=== PATIENT | female | born 2000 | race Caucasian/White ===

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

== ENCOUNTER 2018-02-08 12:41 | Emergency (ER) | payer OTHER ==
[2018-02-08] MEDS ORDERED: ONDANSETRON 4 MG/2 ML VIAL IVP STA (13:41)
[2018-02-08] MEDS ORDERED: FAMOTIDINE 20 MG/2 ML VIAL IV STA (13:42)
--- NOTE | 2018-02-08 13:45 | ED ---
General Adult HPI - General Chief complaint: Nausea/Vomiting/Diarrhea Stated complaint: Vomiting Time Seen by Provider: 02/08/18 13:32 Source: patient, RN notes reviewed Mode of arrival: ambulatory Limitations: no limitations - History of Present Illness Initial comments: Patient is a pleasant 17-year-old female presenting to the emergency Department with vomiting. Symptoms have been occurring for a couple of days. Patient was seen at a different facility and had blood work and computed tomography scan done and was told everything was fine. Patient believes she may have passed a kidney stone at one point. Patient did have some left posterior flank discomfort that has improved. Patient states this morning she had swelling and discomfort of her throat and lymph nodes in her neck. Patient also feels that her private have been swollen. No dysuria. Patient believes she is been having fevers. Patient states she is having intermittent episodes of vomiting. - Related Data Home Medications Medication Instructions Recorded Confirmed Fluticasone Nasal [place] [Flonase 1 spr EA NOSTRIL DAILY PRN 02/08/18 02/08/18 Nasal [place]] Previous Rx's Medication Instructions Recorded Ondansetron Odt [Zofran Odt] 4 mg PO Q8HR PRN #10 tab 02/08/18 Allergies Allergy/AdvReac Type Severity Reaction Status Date / Time latex Allergy Rash/Hives Verified 02/08/18 13:28 Review of Systems ROS Statement: Those systems with pertinent positive or pertinent negative responses have been documented in the HPI. ROS Other: All systems not noted in ROS Statement are negative. Constitutional: Reports: fever, chills Eyes: Denies: eye pain ENT: Reports: throat pain Respiratory: Denies: cough Cardiovascular: Denies: chest pain Endocrine: Reports: fatigue Gastrointestinal: Reports: abdominal pain, nausea, vomiting Genitourinary: Denies: dysuria Musculoskeletal: Reports: as per HPI, back pain Skin: Denies: rash Neurological: Denies: weakness Past Medical History Past Medical History: GERD/Reflux Additional Past Medical History / Comment(s): PID History of Any Multi-Drug Resistant Organisms: None Reported Past Surgical History: No Surgical Hx Reported Past Psychological History: Anxiety, Depression Smoking Status: Current every day smoker Past Alcohol Use History: None Reported Past Drug Use History: None Reported General Exam Limitations: no limitations General appearance: alert, in no apparent distress Head exam: Present: atraumatic, normocephalic Eye exam: Present: normal appearance, PERRL ENT exam: Present: other (Mild pharyngeal erythema) Neck exam: Present: lymphadenopathy (Mildly tender anterior cervical lymphadenopathy). Absent: meningismus Respiratory exam: Present: normal lung sounds bilaterally Cardiovascular Exam: Present: regular rate, normal rhythm Expanded Peripheral pulses: 2+: Dorsalis Pedis (R), Dorsalis Pedis (L) GI/Abdominal exam: Present: soft, tenderness (Mild tenderness lower abdomen), normal bowel sounds. Absent: distended, guarding, rebound, rigid, pulsatile mass External exam: Present: normal external exam (JACI Em is present during exam) Speculum exam: Present: normal speculum exam By manual exam: Present: normal by manual exam. Absent: cervical motion tenderness, adnexal tenderness, adnexal mass Extremities exam: Present: normal inspection Back exam: Present: CVA tenderness (L) (Mild tenderness left CVA region) Neurological exam: Present: alert Psychiatric exam: Present: normal affect, normal mood Skin exam: Present: normal color Course Vital Signs 02/08/18 02/08/18 02/08/18 12:56 14:55 15:30 Temperature 98.2 F 98.7 F Pulse Rate 91 55 L Respiratory 18 16 18 Rate Blood Pressure 120/81 112/63 126/73 O2 Sat by Pulse 98 94 L Oximetry Medical Decision Making - Medical Decision Making Patient reevaluated and resting comfortably in bed. Patient updated on results. - Lab Data Result diagrams: 02/08/18 14:06 02/08/18 14:06 Lab Results 02/08/18 02/08/18 02/08/18 Range/Units 14:00 14:00 14:06 WBC (4.0-11.0) k/uL RBC (3.80-5.40) m/uL Hgb (11.4-16.0) gm/dL Hct (34.0-46.0) % MCV (80.0-100.0) fL MCH (25.0-35.0) pg MCHC (31.0-37.0) g/dL RDW (11.5-15.5) % Plt Count (150-450) k/uL Neutrophils % % Lymphocytes % % Monocytes % % Eosinophils % % Basophils % % Neutrophils # (1.3-7.7) k/uL Lymphocytes # (1.0-4.8) k/uL Monocytes # (0-1.0) k/uL Eosinophils # (0-0.7) k/uL Basophils # (0-0.2) k/uL PT (9.0-12.0) sec INR (<1.2) APTT (22.0-30.0) sec Sodium 142 (137-145) mmol/L Potassium 4.3 (3.5-5.1) mmol/L Chloride 107 (98-107) mmol/L Carbon Dioxide 28 (22-30) mmol/L Anion Gap 7 mmol/L BUN 13 (7-17) mg/dL Creatinine 0.77 (0.52-1.04) mg/dL Est GFR (CKD-EPI)AfAm >90 (>60 ml/min/1.73 sqM) Est GFR (CKD-EPI)NonAf >90 (>60 ml/min/1.73 sqM) Glucose 83 (74-99) mg/dL Calcium 9.9 (8.4-10.2) mg/dL Total Bilirubin 0.6 (0.2-1.3) mg/dL AST 18 (14-36) U/L ALT 18 (9-52) U/L Alkaline Phosphatase 51 (38-126) U/L Total Protein 6.5 (6.3-8.2) g/dL Albumin 4.0 (3.5-5.0) g/dL Amylase 48 (30-110) U/L Lipase 47 (23-300) U/L Urine Color Light Yellow Urine Appearance Clear (Clear) Urine pH 7.0 (5.0-8.0) Ur Specific [place] 1.004 (1.001-1.035) Urine Protein Negative (Negative) Urine Glucose (UA) Negative (Negative) Urine Ketones Negative (Negative) Urine Blood Negative (Negative) Urine Nitrite Negative (Negative) Urine Bilirubin Negative (Negative) Urine Urobilinogen <2.0 (<2.0) mg/dL Ur Leukocyte Esterase Negative (Negative) Urine HCG, Qual Not Detected (Not Detectd) Group A Strep Rapid (Negative) Trichomonas Ag (Rapid) (Negative) 02/08/18 02/08/18 02/08/18 Range/Units 14:06 14:06 14:23 WBC 6.9 (4.0-11.0) k/uL RBC 4.53 (3.80-5.40) m/uL Hgb 14.1 (11.4-16.0) gm/dL Hct 44.1 (34.0-46.0) % MCV 97.4 (80.0-100.0) fL MCH 31.1 (25.0-35.0) pg MCHC 32.0 (31.0-37.0) g/dL RDW 12.2 (11.5-15.5) % Plt Count 241 (150-450) k/uL Neutrophils % 62 % Lymphocytes % 27 % Monocytes % 6 % Eosinophils % 2 % Basophils % 1 % Neutrophils # 4.3 (1.3-7.7) k/uL Lymphocytes # 1.9 (1.0-4.8) k/uL Monocytes # 0.4 (0-1.0) k/uL Eosinophils # 0.2 (0-0.7) k/uL Basophils # 0.0 (0-0.2) k/uL PT 10.3 (9.0-12.0) sec INR 1.0 (<1.2) APTT 27.3 (22.0-30.0) sec Sodium (137-145) mmol/L Potassium (3.5-5.1) mmol/L Chloride (98-107) mmol/L Carbon Dioxide (22-30) mmol/L Anion Gap mmol/L BUN (7-17) mg/dL Creatinine (0.52-1.04) mg/dL Est GFR (CKD-EPI)AfAm (>60 ml/min/1.73 sqM) Est GFR (CKD-EPI)NonAf (>60 ml/min/1.73 sqM) Glucose (74-99) mg/dL Calcium (8.4-10.2) mg/dL Total Bilirubin (0.2-1.3) mg/dL AST (14-36) U/L ALT (9-52) U/L Alkaline Phosphatase (38-126) U/L Total Protein (6.3-8.2) g/dL Albumin (3.5-5.0) g/dL Amylase (30-110) U/L Lipase (23-300) U/L Urine Color Urine Appearance (Clear) Urine pH (5.0-8.0) Ur Specific [place] (1.001-1.035) Urine Protein (Negative) Urine Glucose (UA) (Negative) Urine Ketones (Negative) Urine Blood (Negative) Urine Nitrite (Negative) Urine Bilirubin (Negative) Urine Urobilinogen (<2.0) mg/dL Ur Leukocyte Esterase (Negative) Urine HCG, Qual (Not Detectd) Group A Strep Rapid Negative (Negative) Trichomonas Ag (Rapid) (Negative) 02/08/18 Range/Units 15:06 WBC (4.0-11.0) k/uL RBC (3.80-5.40) m/uL Hgb (11.4-16.0) gm/dL Hct (34.0-46.0) % MCV (80.0-100.0) fL MCH (25.0-35.0) pg MCHC (31.0-37.0) g/dL RDW (11.5-15.5) % Plt Count (150-450) k/uL Neutrophils % % Lymphocytes % % Monocytes % % Eosinophils % % Basophils % % Neutrophils # (1.3-7.7) k/uL Lymphocytes # (1.0-4.8) k/uL Monocytes # (0-1.0) k/uL Eosinophils # (0-0.7) k/uL Basophils # (0-0.2) k/uL PT (9.0-12.0) sec INR (<1.2) APTT (22.0-30.0) sec Sodium (137-145) mmol/L Potassium (3.5-5.1) mmol/L Chloride (98-107) mmol/L Carbon Dioxide (22-30) mmol/L Anion Gap mmol/L BUN (7-17) mg/dL Creatinine (0.52-1.04) mg/dL Est GFR (CKD-EPI)AfAm (>60 ml/min/1.73 sqM) Est GFR (CKD-EPI)NonAf (>60 ml/min/1.73 sqM) Glucose (74-99) mg/dL Calcium (8.4-10.2) mg/dL Total Bilirubin (0.2-1.3) mg/dL AST (14-36) U/L ALT (9-52) U/L Alkaline Phosphatase (38-126) U/L Total Protein (6.3-8.2) g/dL Albumin (3.5-5.0) g/dL Amylase (30-110) U/L Lipase (23-300) U/L Urine Color Urine Appearance (Clear) Urine pH (5.0-8.0) Ur Specific [place] (1.001-1.035) Urine Protein (Negative) Urine Glucose (UA) (Negative) Urine Ketones (Negative) Urine Blood (Negative) Urine Nitrite (Negative) Urine Bilirubin (Negative) Urine Urobilinogen (<2.0) mg/dL Ur Leukocyte Esterase (Negative) Urine HCG, Qual (Not Detectd) Group A Strep Rapid (Negative) Trichomonas Ag (Rapid) Negative (Negative) - Radiology Data Radiology results: image reviewed (Abdominal x-ray shows nonobstructive pattern) Disposition Clinical Impression: Vomiting Disposition: HOME SELF-CARE Condition: Stable Instructions: Acute Nausea and Vomiting (ED) Additional Instructions: Please follow-up with primary care physician in the next couple days for recheck. Return for uncontrolled vomiting, pain, fevers, worsening symptoms or other concerns. [id number] Pepcid as needed. Prescriptions: Ondansetron Odt [Zofran Odt] 4 mg PO Q8HR PRN #10 tab PRN Reason: Nausea Is patient prescribed a controlled substance at d/c from ED?: No Referrals: Ezekiel Navarro MD [Primary Care Provider] - 1-2 days Time of Disposition: 16:08
[2018-02-08 14:31] LABS: Appearance,Urine Clear (Clear); Bilirubin,Urine Negative (Negative); Blood,Urine Negative (Negative); Color,Urine Light Yellow; Glucose,Urine (UA) Negative (Negative); Ketones,Urine Negative (Negative); Leukocyte Esterase,Urine Negative (Negative); Nitrite,Urine Negative (Negative); Protein,Urine Negative (Negative); Specific Gravity,Urine 1.004 (1.001-1.035); Urobilinogen,Urine <2.0 mg/dL (<2.0)
[2018-02-08 14:31] LABS: Basophils % (A) 1 %; Eosinophils # (A) 0.2 k/uL (0-0.7); Eosinophils % (A) 2 %; HCT 44.1 % (34.0-46.0); HGB 14.1 gm/dL (11.4-16.0); Lymphocytes # (A) 1.9 k/uL (1.0-4.8); Lymphocytes % (A) 27 %; MCH 31.1 pg (25.0-35.0); MCV 97.4 fL (80.0-100.0); Mean Platelet Volume 7.2; Monocytes # (A) 0.4 k/uL (0-1.0); Monocytes % (A) 6 %; Neutrophils # (A) 4.3 k/uL (1.3-7.7); Neutrophils % (A) 62 %; Platelet Count 241 k/uL (150-450); RBC 4.53 m/uL (3.80-5.40); RDW 12.2 % (11.5-15.5); WBC 6.9 k/uL (4.0-11.0)
[2018-02-08 14:45] LABS: Partial Thromboplastin Time 27.3 sec (22.0-30.0); Prothrombin Time 10.3 sec (9.0-12.0)
[2018-02-08 14:47] LABS: ALT 18 U/L (9-52); AST 18 U/L (14-36); Alkaline Phosphatase 51 U/L (38-126); Amylase 48 U/L (30-110); Anion Gap 7 mmol/L; Blood Urea Nitrogen 13 mg/dL (7-17); Calcium 9.9 mg/dL (8.4-10.2); Carbon Dioxide 28 mmol/L (22-30); Chloride 107 mmol/L (98-107); Glucose 83 mg/dL (74-99); Lipase 47 U/L (23-300); Potassium 4.3 mmol/L (3.5-5.1); Sodium 142 mmol/L (137-145); Total Bilirubin 0.6 mg/dL (0.2-1.3); Total Protein 6.5 g/dL (6.3-8.2)
--- NOTE | 2018-02-08 15:14 | XR ---
Abdomen HISTORY: Pain, fever and vomiting Frontal view of the abdomen on 2 images Lung bases are clear. There is no evident bowel obstruction or pneumoperitoneum. Pathologic calcifica tion. IMPRESSION: Nonobstructive bowel gas pattern.
[2018-02-08 16:35] VITALS: BP 115/69; PULSE 75; RESP 16; TEMP 97.8
[2018-02-09 13:35] LABS: C. trachomatis,PCR Negative (Neg,Equiv); Chlamydia trachomatis Source Vagina
[2018-02-09 13:42] LABS: N. gonorrhoeae,PCR Negative (Neg,Equiv); Neisseria Source Vagina
== END 2018-02-08 16:40 | disposition home or self-care (01) ==
LOC: EC 12:41
DX: R11.2 Nausea with vomiting, unspecified (principal); R19.7 Diarrhea, unspecified; F17.200 Nicotine dependence, unspecified, uncomplicated; Z91.040 Latex allergy status
CPT/HCPCS: 36415; 80053; 82150; 83690; 85025; 85610; 85730; 81003; 81025; 87808; 87491; 87591; 87070; 87086; 87205; 87081; 87430; 74018; 99284; 96374; 96375; J2405

== ENCOUNTER → 2018-04-25 | Outpatient (CLI) | payer OTHER ==
--- NOTE | 2018-04-25 14:32 | US ---
EXAMINATION TYPE: Transabdominal DATE OF EXAM: 04/25/2018 2:18 PM COMPARISON: NONE CLINICAL HISTORY: Z36. Confirm Dates. EXAM PERFORMED: Transabdominal (TA) EXAM MEASUREMENTS: GESTATIONAL AGE / DATING Physician Established: Not yet established Dates by LMP: (9 weeks/1 days) EDC: 11/27/2018 Dates by First Scan: No previous this is first scan Dates by Current Scan for: (9 weeks/1 days) EDC: 11/27/2018 MATERNAL ANATOMY Uterus: 13.6 x 5.0 x 8.6 cm Right Ovary: 2.2 x 2.6 x 1.2 cm Left Ovary: 2.5 x 3.1 x 1.6 cm Post CDS / Adnexa: wnl Presence of free fluid: none GESTATION / SURVEY CRL: 2.4 cm (9 weeks/1 days) Yolk Sac (normal less than 6mm): 0.3 cm Heart Rate: 132 bpm Rhythm: Normal IUP: Viable IUP Date of LMP: 02/20/2018 Beta HcG (if available): not available Single live intrauterine gestation is confirmed as gestational sac, yolk sac, and pole are iden tified. No free fluid in pelvis is seen. Both ovaries are present. No suspicious extraovarian adnexal lesion is seen. IMPRESSION: Single live intrauterine gestation is confirmed, mean crown-rump length is 2.4 cm corresponding to 9 week 1 day old fetus.
== END | disposition home or self-care (01) ==
LOC: RADUSWWP 13:58
PROVIDERS: ATTEND Obstetrics & Gynecology
DX: Z36.89 Encounter for other specified antenatal screening (principal); Z3A.09 9 weeks gestation of pregnancy
CPT/HCPCS: 76801

== ENCOUNTER 2018-09-11 00:04 | Outpatient (CLI) | payer OTHER ==
[2018-09-11 00:49] LABS: Appearance,Urine Clear (Clear); Bacteria,Urine Occasional /hpf; Bilirubin,Urine Negative (Negative); Blood,Urine Negative (Negative); Color,Urine Light Yellow; Glucose,Urine (UA) Negative (Negative); Ketones,Urine Negative (Negative); Leukocyte Esterase,Urine Small (Negative); Nitrite,Urine Negative (Negative); PH, Urine 6.5 (5.0-8.0); Protein,Urine Negative (Negative); RBC,Urine 2 /hpf (0-5); Specific Gravity,Urine 1.004 (1.001-1.035); Squamous Epithelial Cell,Urine 2 /hpf (0-4); Urobilinogen,Urine <2.0 mg/dL (<2.0); WBC,Urine 5 /hpf (0-5)
[2018-09-11] MEDS: LACTATED RINGERS 1,000 ML IV SCH ×2 (01:10→01:26)
[2018-09-11 01:39] VITALS: BP 135/62; PULSE 84; RESP 18; TEMP 98.2
--- NOTE | 2018-09-12 12:42 | P.MSEPDOC ---
Presenting Problems - Arrival Data Date of Arrival on Unit: 09/11/18 Time of Arrival on Unit: 00:04 Mode of Transport: Wheelchair - Complaint OB-Reason for Admission/Chief Complaint: Possible Onset of Labor Comment: contractions began at 2100 and became stronger at 2300 contractions 2-4 minutes apart. Medical History - Information : 1 Para: 0 Term: 0 : 0 Abortions: Spontaneous or Elective: 0 Number of Living Children: 0 - Gestational Age Gestational Age by DEMETRIUS (wks/days): 29 Weeks and 0 Days Review of Systems - Review of Systems Constitutional: No problems Breast: No problems ENT: No problems Cardiovascular: No problems Respiratory: No problems Gastrointestinal: No problems Genitourinary: No problems Musculoskeletal: No problems Neurological: No problems Skin: No problems Vital Signs - Temperature Temperature: 98.2 F Temperature Source: Temporal Artery Scan - Pulse Right Pulse Oximetery Pulse Rate: 84 Pulse Assessment Method: Pulse Oximetry - Respirations Respiratory Rate: 18 Oxygen Delivery Method: Room Air O2 Sat by Pulse Oximetry: 98 - Blood Pressure Right Arm Blood Pressure: 135/62 Blood Pressure Mean: 86 Blood Pressure Source: Automatic Cuff Medical Screen Scoring (Pre) - Cervical Exam Dilation: 0 cm = 0 Membranes: Intact - Uterine Contractions Frequency: < 36 weeks = 6 Duration: > 40 seconds = 2 Intensity: N/A - Maternal Vital Signs Maternal Temperature: N/A Maternal Blood Pressure: N/A Signs of Preeclampsia: N/A Maternal Respirations: N/A - Maternal Trauma Maternal Trauma: N/A - Assessment - Baby A Baseline FHR: 135 Heart Rate - NICHD Category: Category I (Normal) = 0 NST: Reactive Position: N/A Station: N/A - Total Score - Baby A Total Score - Baby A: 8 - Total Score - Baby B Total Score - Baby B: 8 - Total Score - Baby C Total Score - Baby C: 8 - Level of Risk - Baby A Level of Risk - Baby A: Medium (6-9) - Level of Risk - Baby B Level of Risk - Baby B: Medium (6-9) - Level of Risk - Baby C Level of Risk - Baby C: Medium (6-9) Physician Notification (Pre) - Physician Notified Physician Notified Date: 09/11/18 Physician Notified Time: 01:00 Physician/Practitioner Notifed:: Yoni Spoke With: Telephone New Order Received: Yes - Notification Comment Comment: order for IV hydration and to send FFN Medical Screen Scoring (Post) - Uterine Contractions Frequency: > 5 minutes apart = 1 Duration: > 40 seconds = 2 Intensity: N/A - Maternal Vital Signs Maternal Temperature: N/A Maternal Blood Pressure: N/A Signs of Preeclampsia: N/A Maternal Respirations: N/A - Pain Assessment Pain Location and Character: Abdomen Pain Scale Used: Numeric (1 - 10) Pain Intensity: 2 Pain Management Goal: 2 Pain Description: *Acute, Cramping Pain Radiation Location: none Pain Frequency: Intermittent Pain Duration: 5 Pain Duration Units: Hours Pain Behavior: Vocalization Effects of Pain: none Pain Aggravating Factors: None Pharmacological Interventions: Discuss Pain Med Options Non-Pharmacological Interventions: Reduce Environmental Stimuli - Maternal Trauma Maternal Trauma: N/A - Assessment - Baby A Heart Rate: 130 Heart Rate - NICHD Category: Category I (Normal) = 0 NST: Reactive Position: N/A Station: N/A - Total Score Total Score - Baby A: 3 Total Score - Baby B: 3 Total Score - Baby C: 3 - Post Treatment Level of Risk Post Treatment Level of Risk - Baby A: Low (0-5) Post Treatment Level of Risk - Baby B: Low (0-5) Post Treatment Level of Risk - Baby C: Low (0-5) Physician Notification (Post) - Physician Notified Physician Notified Date: 09/11/18 Physician Notified Time: 02:23 Physician/Practitioner Notified:: Yoni Spoke With: via telephone New Order Received: Yes (discharge) Disposition - Disposition OB Disposition: Discharge to home Discharge Date: 09/11/18 Discharge Time: 01:25 I agree with the RN Medical Screening Exam: Yes Risk & Benefit of care provided described in d/c instruction: Yes Diagnosis: FALSE LABOR BEFORE 37 COMPLETED WEEKS OF GEST, THIRD TRI
== END 2018-09-11 02:25 | disposition home or self-care (01) ==
LOC: FBPOP 00:04
PROVIDERS: ATTEND Obstetrics & Gynecology
DX: O47.03 False labor before 37 completed weeks of gestation, third trimester (principal); Z3A.29 29 weeks gestation of pregnancy
CPT/HCPCS: 59025; 96360; 82731; 81001; G0463; 84112; 99214

== ENCOUNTER 2018-10-19 23:34 | Outpatient (CLI) | payer OTHER ==
[2018-10-20 01:10] VITALS: BP 121/58; PULSE 83; RESP 18; TEMP 97.7
--- NOTE | 2018-12-27 00:13 | P.MSEPDOC ---
Presenting Problems - Arrival Data Date of Arrival on Unit: 10/20/18 Time of Arrival on Unit: 23:34 Mode of Transport: Ambulatory - Complaint OB-Reason for Admission/Chief Complaint: Possible Onset of Labor, Rule Out PROM, Decreased Movement Comment: pt presents to triage for contractions, decreased movement and Possible SROM 1/2 hour before she came in Medical History - Information : 1 Para: 0 Term: 0 : 0 Abortions: Spontaneous or Elective: 0 Number of Living Children: 0 - Gestational Age Gestational Age by DEMETRIUS (wks/days): 34 Weeks and 4 Days Review of Systems - Review of Systems Constitutional: No problems Breast: No problems ENT: No problems Cardiovascular: No problems Respiratory: No problems Gastrointestinal: No problems Genitourinary: No problems Musculoskeletal: No problems Neurological: No problems Skin: No problems Vital Signs - Temperature Temperature: 97.7 F Temperature Source: Temporal Artery Scan - Pulse Right Brachial Pulse Rate: 83 Pulse Assessment Method: Automatic Cuff - Respirations Respiratory Rate: 18 Oxygen Delivery Method: Room Air O2 Sat by Pulse Oximetry: 98 - Blood Pressure Right Arm Blood Pressure: 121/58 Blood Pressure Mean: 79 Blood Pressure Source: Automatic Cuff Medical Screen Scoring (Pre) - Cervical Exam Dilation: 1-3 cm = 1 Effacement: Exam Deferred Membranes: Intact - Uterine Contractions Frequency: < 36 weeks = 6 Duration: > 40 seconds = 2 Intensity: N/A - Maternal Vital Signs Maternal Temperature: N/A Maternal Blood Pressure: N/A Signs of Preeclampsia: N/A Maternal Respirations: N/A - Maternal Trauma Maternal Trauma: N/A - Assessment - Baby A Baseline FHR: 130 Heart Rate - NICHD Category: Category I (Normal) = 0 NST: Reactive Position: N/A Station: N/A - Total Score - Baby A Total Score - Baby A: 9 - Total Score - Baby B Total Score - Baby B: 9 - Total Score - Baby C Total Score - Baby C: 9 - Level of Risk - Baby A Level of Risk - Baby A: Medium (6-9) - Level of Risk - Baby B Level of Risk - Baby B: Medium (6-9) - Level of Risk - Baby C Level of Risk - Baby C: Medium (6-9) Physician Notification (Pre) - Physician Notified Physician Notified Date: 10/20/18 Physician Notified Time: 00:19 Physician/Practitioner Notifed:: Dr. Vallejo Spoke With: Dr. Vallejo New Order Received: Yes - Notification Comment Comment: notified of contractions every 2-4, palpating mild, movement heard by RN multiple times, amniosure negative, reactive nst, discharge pt home, follow up in office on Tuesday at scheduled appt, review s/s with pt Disposition - Disposition OB Disposition: Triage, Discharge to home, Written follow up instructions reviewed Discharge Date: 10/20/18 Discharge Time: 00:25 I agree with the RN Medical Screening Exam: Yes Risk & Benefit of care provided described in d/c instruction: Yes Diagnosis: FALSE LABOR BEFORE 37 COMPLETED WEEKS OF GEST, THIRD TRI
== END 2018-10-20 00:25 | disposition home or self-care (01) ==
LOC: FBPOP 23:34
PROVIDERS: ATTEND Obstetrics & Gynecology
DX: O47.03 False labor before 37 completed weeks of gestation, third trimester (principal); Z3A.34 34 weeks gestation of pregnancy
CPT/HCPCS: 59025; 84112; G0463; 99213

== ENCOUNTER 2018-11-15 20:55 | Inpatient (IN) | payer OTHER ==
[2018-11-15] MEDS ORDERED: TERBUTALINE 1 MG/ML VIAL SQ PRN (22:11)
[2018-11-15] MEDS ORDERED: OXYTOCIN 10 UNIT/ML 1 ML VIAL IM PRN (22:11)
[2018-11-15] MEDS ORDERED: METHYLERGONOVINE 0.2 MG/ML 1 ML AMP IM PRN (22:11)
[2018-11-15] MEDS ORDERED: LIDOCAINE 0.5% (PF) 5 MG/ML (50 ML SDV) SQ PRN (22:11)
[2018-11-15] MEDS ORDERED: CARBOPROST TROMETHAMINE 250 MCG/ML 1 ML AMP IM PRN (22:11)
[2018-11-15] MEDS ORDERED: BUTORPHANOL 1 MG/ML 1 ML VIAL IV PRN (22:13)
[2018-11-15] MEDS ORDERED: AMPICILLIN 2,000 MG in SODIUM CHLORIDE 0.9% 100 ML IVPB ONE (22:15)
[2018-11-15] MEDS: LACTATED RINGERS 1,000 ML IV SCH (22:32)
[2018-11-15 22:47] LABS: Basophils # (A) 0.1 k/uL (0-0.2); Basophils % (A) 1 %; Eosinophils # (A) 0.1 k/uL (0-0.7); Eosinophils % (A) 1 %; HCT 36.1 % (34.0-46.0); HGB 12.1 gm/dL (11.4-16.0); Lymphocytes # (A) 1.7 k/uL (1.0-4.8); Lymphocytes % (A) 10 %; MCH 32.4 pg (25.0-35.0); MCHC 33.5 g/dL (31.0-37.0); MCV 96.7 fL (80.0-100.0); Mean Platelet Volume 8.6; Monocytes # (A) 0.8 k/uL (0-1.0); Monocytes % (A) 5 %; Neutrophils # (A) 13.7 k/uL (1.3-7.7); Neutrophils % (A) 82 %; Platelet Count 238 k/uL (150-450); RBC 3.73 m/uL (3.80-5.40); RDW 14.1 % (11.5-15.5); WBC 16.7 k/uL (4.0-11.0)
--- NOTE | 2018-11-15 23:04 | P.HPOB ---
History of Present Illness H&P Date: 11/15/18 Chief Complaint: Contractions This patient is a 18-year-old 1 para 0 female estimated date of confinement 11/27/2013 estimated gestational age 38-2/7 weeks who presents to labor and delivery with complaints of contractions that she states began yesterday. Patient is found to be 3 cm on admission is now 4-5 cm dilated in active labor. care is per Dr. Vallejo appears to be uncomplicated with the exception of a small for gestational age. Patient has a positive culture. Review of Systems Genitourinary: Reports Menstruation: Reports amenorrhea Past Medical History Past Medical History: GERD/Reflux Additional Past Medical History / Comment(s): PID History of Any Multi-Drug Resistant Organisms: None Reported Past Surgical History: Tonsillectomy Past Anesthesia/Blood Transfusion Reactions: No Reported Reaction Smoking Status: Former smoker Past Alcohol Use History: None Reported Past Drug Use History: None Reported Medications and Allergies Home Medications Medication Instructions Recorded Confirmed Type Pnv,Calcium 72/Iron/Folic Acid 1 each PO DAILY 09/11/18 10/19/18 History [ Plus Tablet] Allergies Allergy/AdvReac Type Severity Reaction Status Date / Time latex Allergy Rash/Hives Verified 11/15/18 22:10 Exam Intake and Output 11/15/18 11/15/18 11/15/18 06:59 14:59 22:59 Other: Weight 78.925 kg - OBG Physical Exam Abdomen: bowel sounds normal, no diffuse tenderness, no bruit present, no guarding noted, no hepatomegaly, no splenomegaly, no mass Vulva: both: normal Vagina: no discharge Cervix: no lesion (Cervix 4-5 cm dilated 80% effaced -2 station.), no discharge Uterus: enlarged (Fundal height the office was 34 cm) Results blood work shows she is B+, rubella immune, RPR nonreactive, hepatitis B negative, toxoplasmosis was negative, most recent ultrasound placed the 6 lbs. 7 oz. which is the 25th percentile. Group B strep was positive. Result Diagrams: 11/15/18 22:26 Abnormal Lab Results - Last 24 Hours (Table) 11/15/18 Range/Units 22:26 WBC 16.7 H (4.0-11.0) k/uL RBC 3.73 L (3.80-5.40) m/uL Neutrophils # 13.7 H (1.3-7.7) k/uL Assessment and Plan Assessment: This is a 18-year-old 1 para 0 female estimated date of confinement 11/27/2018 estimated gestational age 38-2/7 weeks who presents to labor and delivery in early active labor. Patient is a positive group B strep culture. Plan is antibiotic prophylaxis, artificial rupture membranes, and anticipate vaginal delivery. (1) 38 weeks gestation of Current Visit: Yes Status: Acute Code(s): Z3A.38 - 38 WEEKS GESTATION OF SNOMED Code(s): 21979350 (2) Normal labor Current Visit: Yes Status: Acute Code(s): O80 - ENCOUNTER FOR FULL-TERM UNCOMPLICATED DELIVERY; Z37.9 - OUTCOME OF DELIVERY, UNSPECIFIED SNOMED Code(s): 22496360 (3) Group B streptococcal carriage complicating Current Visit: Yes Status: Acute Code(s): O99.820 - STREPTOCOCCUS B CARRIER STATE COMPLICATING SNOMED Code(s): 387912168368301
[2018-11-15] MEDS ORDERED: ROPIVACAINE 5MG/ML 20ML VIAL ONE (23:22)
[2018-11-15] MEDS ORDERED: SODIUM CHLORIDE 0.9% 100 ML BAG ONE (23:22)
[2018-11-15] MEDS ORDERED: fentaNYL (PF) 50 MCG/ML 5 ML AMP ONE (23:22)
[2018-11-16] MEDS ORDERED: AMPICILLIN 1,000 MG in SODIUM CHLORIDE 0.9% 50 ML IVPB SCH (02:15)
[2018-11-16] MEDS ORDERED: LANOLIN CREAM 5 GM TUBE TOPICAL PRN (02:54)
[2018-11-16] MEDS ORDERED: WITCH HAZEL 1 EACH MED..PAD TOPICAL PRN (02:54)
[2018-11-16] MEDS ORDERED: diphenhydrAMINE 50 MG CAP PO PRN (02:54)
[2018-11-16] MEDS ORDERED: HYDROCORTISONE 2.5% RECTAL CREAM 30 GM TUBE RECTAL PRN (02:54)
[2018-11-16] MEDS ORDERED: diphenhydrAMINE 50 MG/ML 1 ML VIAL IVP PRN ×2 (02:54)
[2018-11-16] MEDS ORDERED: diphenhydrAMINE 25 MG CAP PO PRN (02:54)
[2018-11-16] MEDS ORDERED: BENZOCAINE/MENTHOL SPRAY 1 GM/SPRAY AEROSOL TOPICAL PRN (02:54)
[2018-11-16] MEDS ORDERED: ZOLPIDEM 5 MG TAB PO PRN (02:54)
[2018-11-16] MEDS ORDERED: ACETAMINOPHEN TAB 325 MG TAB PO PRN (02:54)
[2018-11-16] MEDS ORDERED: SIMETHICONE 80 MG CHEWABLE PO PRN (02:54)
--- NOTE | 2018-11-16 02:58 | P.PROBDLV ---
Vaginal Delivery Note - . Vaginal Delivery Note: Normal spontaneous vaginal delivery viable female Apgars 4 and 8 at 0223 hours. Please see dictated H&P for intimate details of this patient's admission. Brief summary this is a 18-year-old 1 para 0 female estimated gestational age 38-2/7 weeks who presented to labor and delivery with complaints of regular painful contractions. Patient is found to be 3 cm dilated and then goes to 4 cm dilated. Patient is given ampicillin for positive group B strep culture. She has artificial rupture membranes for clear fluid. Patient does request an epidural for pain control and gets this with good relief. heart tones show some decreased variability however she does have accelerations with scalp stimulation without decelerations. Patient progresses very quickly gets to complete pushes for approximately 10 minutes. Patient pushes the head to the perineum and the posterior perineum is supported. We have controlled delivery of 's head over the intact perineum. Mouth and nares are bulb suctioned. There is no evidence of nuchal cord. With gentle downward traction we then have deliver the anterior and posterior shoulder and rest this 's body. Is a viable female Apgars are 4 and 8. does have spontaneous respirations and good and cry however it does require some positive pressure ventilation immediately after delivery and the baby responds very well to this. After delivery of the the umbilical cord was doubly clamped and cut it appears to be trivascular. The placenta was delivered spontaneously intact. Did appear somewhat small. Inspection of the perineum shows a first- degree vaginal laceration that was repaired with a small suture of 3-0 Vicryl. Excellent reapproximation is noted. All counts are correct 3. Estimated blood loss is 100 mL. is taken to special care for observation but appears to be doing well. We will keep a close eye on it due to the positive group B strep culture.
[2018-11-16] MEDS ORDERED: OXYTOCIN 20 UNITS/1000 ML NS 1,000 ML IV SCH (03:00)
[2018-11-16 03:16] VITALS: BMI 28.9
[2018-11-16 03:50] VITALS: RESP 16
[2018-11-16] MEDS: IBUPROFEN 600 MG TAB PO PRN ×2 (07:42→22:48)
[2018-11-16] MEDS: SENNOSIDES-DOCUSATE SODIUM 1 EACH TAB PO SCH ×2 (08:49→15:15)
[2018-11-17] MEDS: LACTATED RINGERS 1,000 ML IV SCH (00:51)
[2018-11-17 09:42] VITALS: BP 133/87; PULSE 70; TEMP 97.6
[2018-11-17] MEDS: SENNOSIDES-DOCUSATE SODIUM 1 EACH TAB PO SCH (09:42)
== END 2018-11-17 11:32 | disposition home or self-care (01) | DRG 807 ==
LOC: FBPOP 20:55 → 4FBP 22:05
PROVIDERS: ADMIT Obstetrics & Gynecology; ATTEND Obstetrics & Gynecology
PROC: 00HU33Z Insertion of Infusion Device into Spinal Canal, Percutaneous Approach (ICD-10-PCS; 2018-11-15)
PROC: 3E0R3BZ Introduction of Anesthetic Agent into Spinal Canal, Percutaneous Approach (ICD-10-PCS; 2018-11-15)
PROC: 10E0XZZ Delivery of Products of Conception, External Approach (ICD-10-PCS; principal; 2018-11-16)
PROC: 0HQ9XZZ Repair Perineum Skin, External Approach (ICD-10-PCS; 2018-11-16)
DX: O99.824 Streptococcus B carrier state complicating childbirth (principal); Z37.0 Single live birth; Z3A.38 38 weeks gestation of pregnancy; O70.0 First degree perineal laceration during delivery; O99.62 Diseases of the digestive system complicating childbirth; K21.9 Gastro-esophageal reflux disease without esophagitis; Z86.19 Personal history of other infectious and parasitic diseases; Z79.899 Other long term (current) drug therapy; Z87.891 Personal history of nicotine dependence; Z91.040 Latex allergy status
CPT/HCPCS: 85025; 86850; 86900; 86901; 88307

== ENCOUNTER → 2019-01-10 | Outpatient (CLI) | payer OTHER ==
[2019-01-10 12:18] LABS: ALT 24 U/L (9-52); AST 23 U/L (14-36); African American GFR (CKD) >90 (>60 ml/min/1.73 sqM); Albumin 4.1 g/dL (3.5-5.0); Albumin/Globulin Ratio 1.5; Alkaline Phosphatase 68 U/L (38-126); Anion Gap 7 mmol/L; Blood Urea Nitrogen 13 mg/dL (7-17); Calcium 9.7 mg/dL (8.4-10.2); Carbon Dioxide 27 mmol/L (22-30); Chloride 109 mmol/L (98-107); Globulin 2.7 g/dL; Glucose 79 mg/dL (74-99); Potassium 4.2 mmol/L (3.5-5.1); Sodium 143 mmol/L (137-145); Total Bilirubin 0.3 mg/dL (0.2-1.3); Total Protein 6.8 g/dL (6.3-8.2)
[2019-01-10 12:34] LABS: HCG,Quantitative Serum <2.4 mIU/mL
== END | disposition home or self-care (01) ==
LOC: LABWHC1 10:56
PROVIDERS: ATTEND Internal Medicine Interventional Cardiology
DX: N91.2 Amenorrhea, unspecified (principal); R55 Syncope and collapse
CPT/HCPCS: 36415; 80053; 84702

== ENCOUNTER 2019-11-28 13:48 | Emergency (ER) | payer OTHER ==
[2019-11-28 13:53] VITALS: RESP 16; TEMP 97.8
--- NOTE | 2019-11-28 14:02 | ED ---
Abdominal Pain HPI - General Chief Complaint: Abdominal Pain Stated Complaint: Abdominal Pain Time Seen by Provider: 11/28/19 14:01 Source: patient Mode of arrival: ambulatory Limitations: no limitations - History of Present Illness Initial Comments: Is a 19-year-old female presenting to emergency Department with a chief complaint of abdominal pain. Patient reports she woke up this morning around 1 AM with right lower quadrant and right low back pain. Patient states he feels like it is radiating from the back to the front. States she also developed nausea with multiple episodes of nonbilious and nonbloody vomiting. She also reports painful urination but not a burning sensation. Does report increased frequency but no urgency. States she went to another emergency department where they obtained a CT of the abdomen and pelvis which revealed the possibility of an appendicolith in the appendix without evidence of appendicitis. Patient states they wanted to transfer to another emergency Department for a surgery consult but she declined and came to this emergency department instead. She also reports diarrhea for the past few days. Denies any fevers or chills. Denies any vaginal symptoms. - Related Data Home Medications Medication Instructions Recorded Confirmed Pnv,Calcium 72/Iron/Folic Acid 1 each PO DAILY 09/11/18 10/19/18 [ Plus Tablet] Previous Rx's Medication Instructions Recorded Ibuprofen [Motrin] 600 mg PO Q6HR PRN #30 tab 11/17/18 Allergies Allergy/AdvReac Type Severity Reaction Status Date / Time latex Allergy Rash/Hives Verified 11/28/19 13:50 Review of Systems ROS Statement: Those systems with pertinent positive or pertinent negative responses have been documented in the HPI. ROS Other: All systems not noted in ROS Statement are negative. Past Medical History Past Medical History: GERD/Reflux Additional Past Medical History / Comment(s): PID History of Any Multi-Drug Resistant Organisms: None Reported Past Surgical History: Tonsillectomy Past Anesthesia/Blood Transfusion Reactions: No Reported Reaction Past Psychological History: Anxiety, Depression Smoking Status: Current every day smoker Past Alcohol Use History: Occasional Past Drug Use History: None Reported - Past Family History Father Family Medical History: Cancer, Myocardial Infarction ([place]) Mother Family Medical History: COPD, Rheumatoid Arthritis ([place]), Sleep Apnea/CPAP/BIPAP General Exam Limitations: no limitations General appearance: alert, in no apparent distress Head exam: Present: atraumatic, normocephalic, normal inspection Eye exam: Present: normal appearance, PERRL, EOMI Pupils: Present: normal accommodation ENT exam: Present: normal exam, normal oropharynx, mucous membranes moist, TM's normal bilaterally, normal external ear exam Neck exam: Present: normal inspection, full ROM. Absent: tenderness Respiratory exam: Present: normal lung sounds bilaterally. Absent: respiratory distress, wheezes, rales Cardiovascular Exam: Present: regular rate, bradycardia, normal heart sounds GI/Abdominal exam: Present: soft, tenderness (Positive McBurney point. Positive Rovsing, tender, psoas.), normal bowel sounds. Absent: distended, guarding, rebound, rigid Extremities exam: Present: normal inspection, full ROM, normal capillary refill. Absent: tenderness Back exam: Present: normal inspection, full ROM, tenderness, CVA tenderness (R) Neurological exam: Present: alert, oriented X3, CN II-XII intact, normal gait Psychiatric exam: Present: normal affect, normal mood Skin exam: Present: warm, dry, intact, normal color Course Vital Signs 11/28/19 13:50 Temperature 97.8 F Pulse Rate 83 Respiratory 16 Rate Blood Pressure 124/82 O2 Sat by Pulse 100 Oximetry Medical Decision Making - Medical Decision Making Patient is a 19-year-old female presenting to the emergency department with chief complaint of abdominal pain. Physical examination patient does have right lower quadrant, right flank and right lower back pain. She is otherwise well appearing and resting comfortably on the bed. Medical records reviewed from the other ED facility. The CT report of abdomen and pelvis with contrast revealed a possible appendicolith but no signs of appendicitis. He also found a cyst on the kidney. No other acute findings were noted. CBC CMP and UA are obtained here and they are unremarkable. Patient is not . Patient was given IV fluids and Toradol for pain. On reevaluation patient reports improvement in symptoms. She has an appointment with her primary care physician tomorrow. Strict return parameters were thoroughly discussed the patient was or standing agreeable. She will be discharged with Jasvir Case discussed with physician. - Lab Data Result diagrams: 11/28/19 14:24 11/28/19 14:24 Lab Results 11/28/19 11/28/19 11/28/19 Range/Units 14:24 14:24 14:24 WBC 8.7 (3.8-10.6) k/uL RBC 4.19 (3.80-5.40) m/uL Hgb 12.9 (11.4-16.0) gm/dL Hct 40.0 (34.0-46.0) % MCV 95.6 (80.0-100.0) fL MCH 30.9 (25.0-35.0) pg MCHC 32.3 (31.0-37.0) g/dL RDW 12.2 (11.5-15.5) % Plt Count 242 (150-450) k/uL Neutrophils % 54 % Lymphocytes % 37 % Monocytes % 5 % Eosinophils % 1 % Basophils % 0 % Neutrophils # 4.7 (1.3-7.7) k/uL Lymphocytes # 3.2 (1.0-4.8) k/uL Monocytes # 0.4 (0-1.0) k/uL Eosinophils # 0.1 (0-0.7) k/uL Basophils # 0.0 (0-0.2) k/uL Sodium 136 L (137-145) mmol/L Potassium 4.0 (3.5-5.1) mmol/L Chloride 105 (98-107) mmol/L Carbon Dioxide 25 (22-30) mmol/L Anion Gap 6 mmol/L BUN 9 (7-17) mg/dL Creatinine 0.71 (0.52-1.04) mg/dL Est GFR (CKD-EPI)AfAm >90 (>60 ml/min/1.73 sqM) Est GFR (CKD-EPI)NonAf >90 (>60 ml/min/1.73 sqM) Glucose 87 (74-99) mg/dL Calcium 8.7 (8.4-10.2) mg/dL Total Bilirubin 0.7 (0.2-1.3) mg/dL AST 20 (14-36) U/L ALT 8 (4-34) U/L Alkaline Phosphatase 52 (38-126) U/L Total Protein 5.9 L (6.3-8.2) g/dL Albumin 3.6 (3.5-5.0) g/dL Urine Color Light Yellow Urine Appearance Clear (Clear) Urine pH 6.0 (5.0-8.0) Ur Specific [place] 1.019 (1.001-1.035) Urine Protein Negative (Negative) Urine Glucose (UA) Negative (Negative) Urine Ketones Negative (Negative) Urine Blood Negative (Negative) Urine Nitrite Negative (Negative) Urine Bilirubin Negative (Negative) Urine Urobilinogen <2.0 (<2.0) mg/dL Ur Leukocyte Esterase Negative (Negative) Disposition Clinical Impression: Abdominal pain, Nausea & vomiting Disposition: HOME SELF-CARE Condition: Stable Instructions (If sedation given, give patient instructions): Abdominal Pain (ED) Additional Instructions: Take prescribed medication as directed. Return to emergency department if symptoms worsen. Is patient prescribed a controlled substance at d/c from ED?: No Referrals: Tacos Falcon DO [Doctor of Osteopathic Medicine] - 1-2 days Time of Disposition: 16:15
[2019-11-28] MEDS ORDERED: SODIUM CHLORIDE 0.9% 1,000 ML IV STA (14:18)
[2019-11-28] MEDS ORDERED: KETOROLAC 15 MG/ML 1 ML VIAL IVP STA (14:31)
[2019-11-28] MEDS ORDERED: ONDANSETRON 4 MG/2 ML VIAL IVP STA (14:31)
[2019-11-28 14:38] LABS: Basophils % (A) 0 %; Eosinophils # (A) 0.1 k/uL (0-0.7); Eosinophils % (A) 1 %; HGB 12.9 gm/dL (11.4-16.0); Lymphocytes # (A) 3.2 k/uL (1.0-4.8); Lymphocytes % (A) 37 %; MCH 30.9 pg (25.0-35.0); MCHC 32.3 g/dL (31.0-37.0); MCV 95.6 fL (80.0-100.0); Mean Platelet Volume 6.9; Monocytes # (A) 0.4 k/uL (0-1.0); Monocytes % (A) 5 %; Neutrophils # (A) 4.7 k/uL (1.3-7.7); Neutrophils % (A) 54 %; Platelet Count 242 k/uL (150-450); RBC 4.19 m/uL (3.80-5.40); RDW 12.2 % (11.5-15.5); WBC 8.7 k/uL (3.8-10.6)
[2019-11-28 14:42] LABS: Appearance,Urine Clear (Clear); Bilirubin,Urine Negative (Negative); Blood,Urine Negative (Negative); Color,Urine Light Yellow; Glucose,Urine (UA) Negative (Negative); Ketones,Urine Negative (Negative); Leukocyte Esterase,Urine Negative (Negative); Nitrite,Urine Negative (Negative); Protein,Urine Negative (Negative); Specific Gravity,Urine 1.019 (1.001-1.035); Urobilinogen,Urine <2.0 mg/dL (<2.0)
[2019-11-28 14:46] LABS: ALT 8 U/L (4-34); AST 20 U/L (14-36); African American GFR (CKD) >90 (>60 ml/min/1.73 sqM); Albumin 3.6 g/dL (3.5-5.0); Alkaline Phosphatase 52 U/L (38-126); Anion Gap 6 mmol/L; Blood Urea Nitrogen 9 mg/dL (7-17); Calcium 8.7 mg/dL (8.4-10.2); Carbon Dioxide 25 mmol/L (22-30); Chloride 105 mmol/L (98-107); Glucose 87 mg/dL (74-99); Non-African American GFR(CKD) >90 (>60 ml/min/1.73 sqM); Sodium 136 mmol/L (137-145); Total Bilirubin 0.7 mg/dL (0.2-1.3); Total Protein 5.9 g/dL (6.3-8.2)
[2019-11-28] MEDS ORDERED: ACET/COD 300 MG/30 MG STARTER PACK 6 TAB BTL PO STA (16:44)
[2019-11-28 16:51] VITALS: BP 132/89; PULSE 89
== END 2019-11-28 16:49 | disposition home or self-care (01) ==
LOC: EC 13:48
DX: R11.2 Nausea with vomiting, unspecified (principal); R10.31 Right lower quadrant pain; N28.1 Cyst of kidney, acquired; R00.2 Palpitations; R30.9 Painful micturition, unspecified; M54.5 Low back pain; F17.200 Nicotine dependence, unspecified, uncomplicated; Z91.040 Latex allergy status; Z87.19 Personal history of other diseases of the digestive system
CPT/HCPCS: 36415; 80053; 85025; 81003; 81025; 99284; 96374; 96375; 96361; J2405; J1885

== ENCOUNTER 2019-12-08 06:39 | Emergency (ER) | payer OTHER ==
[2019-12-08 06:48] VITALS: TEMP 98
[2019-12-08] MEDS ORDERED: SODIUM CHLORIDE 0.9% 1,000 ML IV STA (07:02)
--- NOTE | 2019-12-08 07:10 | ED ---
General Adult HPI - General Chief complaint: Dizziness Stated complaint: Near Syncope Time Seen by Provider: 12/08/19 06:50 Source: patient, RN notes reviewed Mode of arrival: wheelchair Limitations: no limitations - History of Present Illness Initial comments: 19-year-old female with a past medical history of GERD, PID presents to the emergency room for a chief complaint of abdominal pain. Patient reports she has had abdominal pain for over a week. States that first it was on the right side and now it is on the left side. Patient reports she has had dysuria as well. Patient reports she has been to several different hospitals for evaluation and has been offered admission but "was too frustrated to stay." Patient is now presenting to this facility for further management. She denies nausea or vomiting. She denies fevers. She reports she had a CAT scan showing a stone in her appendix as well as pelvic cysts. States she had a transvaginal ultrasound as well.Patient has no other complaints at this time including shortness of breath, chest pain, nausea or vomiting, headache, or visual changes. - Related Data Home Medications Medication Instructions Recorded Confirmed Pnv,Calcium 72/Iron/Folic Acid 1 each PO DAILY 09/11/18 10/19/18 [ Plus Tablet] Previous Rx's Medication Instructions Recorded Ibuprofen [Motrin] 600 mg PO Q6HR PRN #30 tab 11/17/18 Ondansetron Odt [Zofran Odt] 4 mg PO Q8HR PRN #10 tab 11/28/19 Allergies Allergy/AdvReac Type Severity Reaction Status Date / Time latex Allergy Rash/Hives Verified 12/08/19 06:48 Review of Systems ROS Statement: Those systems with pertinent positive or pertinent negative responses have been documented in the HPI. ROS Other: All systems not noted in ROS Statement are negative. Past Medical History Past Medical History: GERD/Reflux Additional Past Medical History / Comment(s): PID History of Any Multi-Drug Resistant Organisms: None Reported Past Surgical History: Tonsillectomy Past Anesthesia/Blood Transfusion Reactions: No Reported Reaction Past Psychological History: Anxiety, Depression Smoking Status: Current every day smoker Past Alcohol Use History: Occasional Past Drug Use History: None Reported - Past Family History Father Family Medical History: Cancer, Myocardial Infarction ([place]) Mother Family Medical History: COPD, Rheumatoid Arthritis ([place]), Sleep Apnea/CPAP/BIPAP General Exam Limitations: no limitations General appearance: alert, in no apparent distress Head exam: Present: atraumatic, normocephalic, normal inspection Eye exam: Present: normal appearance, PERRL, EOMI. Absent: scleral icterus, conjunctival injection, periorbital swelling ENT exam: Present: normal exam, mucous membranes moist Neck exam: Present: normal inspection, full ROM. Absent: tenderness, meningism us, lymphadenopathy Respiratory exam: Present: normal lung sounds bilaterally. Absent: respiratory distress, wheezes, rales, rhonchi, stridor Cardiovascular Exam: Present: regular rate, normal rhythm, normal heart sounds. Absent: systolic murmur, diastolic murmur, rubs, gallop, clicks GI/Abdominal exam: Present: soft, tenderness (Generalized lower abdominal tenderness.), normal bowel sounds. Absent: distended, guarding, rebound, rigid External exam: Present: normal external exam. Absent: erythema, swelling, lesions, lacerations, ecchymosis Speculum exam: Present: vaginal discharge. Absent: normal speculum exam, erythema, cervical discharge, vaginal bleeding, foreign body, tissue, laceration By manual exam: Present: normal by manual exam, other (Elizabeth Tech present as electric motorman for exam). Absent: cervical motion tenderness, adnexal tenderness, adnexal mass, uterine enlargement, uterine tenderness Neurological exam: Present: alert Course Vital Signs 12/08/19 12/08/19 12/08/19 06:44 07:48 08:00 Temperature 98.0 F Pulse Rate 80 71 Respiratory 18 20 18 Rate Blood Pressure 103/68 114/74 O2 Sat by Pulse 98 99 Oximetry 12/08/19 09:00 Temperature Pulse Rate 66 Respiratory 18 Rate Blood Pressure 122/65 O2 Sat by Pulse 99 Oximetry Medical Decision Making - Medical Decision Making Vitals are stable. CBC CMP unremarkable. Transvaginal ultrasound shows small amount of free fluid within the posterior cul-de-sac which is nonspecific. Ultrasound of the appendix shows a questionable tubular structure right lower quadrant findings unspecific could possibly represent appendix with appendicolith. Correlate clinically. No inflammatory changes or fluid present. Given a normal white blood cell count, negative CRP, nonspecific pain for 2 weeks without fever, and no specific right lower quadrant tenderness patient does not have appendicitis clinically. Ultrasound of the kidneys shows no hydronephrosis or nephrolithiasis. Patient reevaluated and feels much better. I did perform pelvic exam, results are pending. Patient refuses empiric treatment. She is aware that if she does have an infection and this will be left untreated until results are completed. Patient reports CAT scan from previous ER from which we cannot get results because apparently it is the weekend and they do not send results on the weekend showed a cyst on the left ovary. Pelvic ultrasound does not show the cyst. It is possible that the cyst ruptured. Patient is feeling much better at this time. She has an appointment with GI in the next month. She will follow up with primary care as well as return here for any worsening symptoms. - Lab Data Result diagrams: 12/08/19 07:53 12/08/19 07:53 Lab Results 12/08/19 12/08/19 12/08/19 Range/Units 07:53 07:53 07:53 WBC 7.6 (3.8-10.6) k/uL RBC 4.50 (3.80-5.40) m/uL Hgb 14.4 (11.4-16.0) gm/dL Hct 44.0 (34.0-46.0) % MCV 97.8 (80.0-100.0) fL MCH 31.9 (25.0-35.0) pg MCHC 32.6 (31.0-37.0) g/dL RDW 12.1 (11.5-15.5) % Plt Count 259 (150-450) k/uL Neutrophils % 58 % Lymphocytes % 31 % Monocytes % 6 % Eosinophils % 3 % Basophils % 1 % Neutrophils # 4.4 (1.3-7.7) k/uL Lymphocytes # 2.3 (1.0-4.8) k/uL Monocytes # 0.5 (0-1.0) k/uL Eosinophils # 0.2 (0-0.7) k/uL Basophils # 0.1 (0-0.2) k/uL Sodium (137-145) mmol/L Potassium (3.5-5.1) mmol/L Chloride (98-107) mmol/L Carbon Dioxide (22-30) mmol/L Anion Gap mmol/L BUN (7-17) mg/dL Creatinine (0.52-1.04) mg/dL Est GFR (CKD-EPI)AfAm (>60 ml/min/1.73 sqM) Est GFR (CKD-EPI)NonAf (>60 ml/min/1.73 sqM) Glucose (74-99) mg/dL Calcium (8.4-10.2) mg/dL Total Bilirubin (0.2-1.3) mg/dL AST (14-36) U/L ALT (4-34) U/L Alkaline Phosphatase (38-126) U/L C-Reactive Protein (<10.0) mg/L Total Protein (6.3-8.2) g/dL Albumin (3.5-5.0) g/dL Amylase (30-110) U/L Lipase (23-300) U/L Urine Color Yellow Urine Appearance Cloudy H (Clear) Urine pH 6.0 (5.0-8.0) Ur Specific Padroni 1.017 (1.001-1.035) Urine Protein Negative (Negative) Urine Glucose (UA) Negative (Negative) Urine Ketones Negative (Negative) Urine Blood Trace H (Negative) Urine Nitrite Negative (Negative) Urine Bilirubin Negative (Negative) Urine Urobilinogen <2.0 (<2.0) mg/dL Ur Leukocyte Esterase Negative (Negative) Urine RBC 2 (0-5) /hpf Urine WBC 1 (0-5) /hpf Ur Squamous Epith Cells 3 (0-4) /hpf Urine Bacteria Rare H (None) /hpf Urine Mucus Few H (None) /hpf Urine HCG, Qual Not Detected (Not Detectd) 12/08/19 Range/Units 07:53 WBC (3.8-10.6) k/uL RBC (3.80-5.40) m/uL Hgb (11.4-16.0) gm/dL Hct (34.0-46.0) % MCV (80.0-100.0) fL MCH (25.0-35.0) pg MCHC (31.0-37.0) g/dL RDW (11.5-15.5) % Plt Count (150-450) k/uL Neutrophils % % Lymphocytes % % Monocytes % % Eosinophils % % Basophils % % Neutrophils # (1.3-7.7) k/uL Lymphocytes # (1.0-4.8) k/uL Monocytes # (0-1.0) k/uL Eosinophils # (0-0.7) k/uL Basophils # (0-0.2) k/uL Sodium 137 (137-145) mmol/L Potassium 4.2 (3.5-5.1) mmol/L Chloride 108 H (98-107) mmol/L Carbon Dioxide 25 (22-30) mmol/L Anion Gap 4 mmol/L BUN 12 (7-17) mg/dL Creatinine 0.64 (0.52-1.04) mg/dL Est GFR (CKD-EPI)AfAm >90 (>60 ml/min/1.73 sqM) Est GFR (CKD-EPI)NonAf >90 (>60 ml/min/1.73 sqM) Glucose 94 (74-99) mg/dL Calcium 9.4 (8.4-10.2) mg/dL Total Bilirubin 0.8 (0.2-1.3) mg/dL AST 17 (14-36) U/L ALT 7 (4-34) U/L Alkaline Phosphatase 50 (38-126) U/L C-Reactive Protein <5.0 (<10.0) mg/L Total Protein 6.1 L (6.3-8.2) g/dL Albumin 3.7 (3.5-5.0) g/dL Amylase 54 (30-110) U/L Lipase 44 (23-300) U/L Urine Color Urine Appearance (Clear) Urine pH (5.0-8.0) Ur Specific Padroni (1.001-1.035) Urine Protein (Negative) Urine Glucose (UA) (Negative) Urine Ketones (Negative) Urine Blood (Negative) Urine Nitrite (Negative) Urine Bilirubin (Negative) Urine Urobilinogen (<2.0) mg/dL Ur Leukocyte Esterase (Negative) Urine RBC (0-5) /hpf Urine WBC (0-5) /hpf Ur Squamous Epith Cells (0-4) /hpf Urine Bacteria (None) /hpf Urine Mucus (None) /hpf Urine HCG, Qual (Not Detectd) Disposition Clinical Impression: Abdominal pain Disposition: HOME SELF-CARE Condition: Good Instructions (If sedation given, give patient instructions): Abdominal Pain (ED) Additional Instructions: Please follow up on culture results. Please see your doctor as well in the next 1-2 days for a recheck. If you have any worsening symptoms or fevers return to the emergency room. Is patient prescribed a controlled substance at d/c from ED?: No Referrals: Ezekiel Navarro MD [Primary Care Provider] - 1-2 days Time of Disposition: 09:46
[2019-12-08 08:08] LABS: Basophils # (A) 0.1 k/uL (0-0.2); Basophils % (A) 1 %; Eosinophils # (A) 0.2 k/uL (0-0.7); Eosinophils % (A) 3 %; HGB 14.4 gm/dL (11.4-16.0); Lymphocytes # (A) 2.3 k/uL (1.0-4.8); Lymphocytes % (A) 31 %; MCH 31.9 pg (25.0-35.0); MCHC 32.6 g/dL (31.0-37.0); MCV 97.8 fL (80.0-100.0); Mean Platelet Volume 7.1; Monocytes # (A) 0.5 k/uL (0-1.0); Monocytes % (A) 6 %; Neutrophils # (A) 4.4 k/uL (1.3-7.7); Neutrophils % (A) 58 %; Platelet Count 259 k/uL (150-450); RDW 12.1 % (11.5-15.5); WBC 7.6 k/uL (3.8-10.6)
[2019-12-08 08:09] LABS: Appearance,Urine Cloudy (Clear); Bacteria,Urine Rare /hpf; Bilirubin,Urine Negative (Negative); Blood,Urine Trace (Negative); Color,Urine Yellow; Glucose,Urine (UA) Negative (Negative); Ketones,Urine Negative (Negative); Leukocyte Esterase,Urine Negative (Negative); Mucus,Urine Few /hpf; Nitrite,Urine Negative (Negative); Protein,Urine Negative (Negative); RBC,Urine 2 /hpf (0-5); Specific Gravity,Urine 1.017 (1.001-1.035); Squamous Epithelial Cell,Urine 3 /hpf (0-4); Urobilinogen,Urine <2.0 mg/dL (<2.0); WBC,Urine 1 /hpf (0-5)
[2019-12-08] MEDS ORDERED: KETOROLAC 15 MG/ML 1 ML VIAL IVP STA (08:14)
[2019-12-08 08:16] LABS: ALT 7 U/L (4-34); AST 17 U/L (14-36); African American GFR (CKD) >90 (>60 ml/min/1.73 sqM); Albumin 3.7 g/dL (3.5-5.0); Alkaline Phosphatase 50 U/L (38-126); Amylase 54 U/L (30-110); Anion Gap 4 mmol/L; Blood Urea Nitrogen 12 mg/dL (7-17); C Reactive Protein <5.0 mg/L (<10.0); Calcium 9.4 mg/dL (8.4-10.2); Carbon Dioxide 25 mmol/L (22-30); Chloride 108 mmol/L (98-107); Glucose 94 mg/dL (74-99); Non-African American GFR(CKD) >90 (>60 ml/min/1.73 sqM); Potassium 4.2 mmol/L (3.5-5.1); Sodium 137 mmol/L (137-145); Total Bilirubin 0.8 mg/dL (0.2-1.3); Total Protein 6.1 g/dL (6.3-8.2)
[2019-12-08 08:25] VITALS: RESP 18
--- NOTE | 2019-12-08 09:14 | US ---
EXAMINATION TYPE: US transvaginal DATE OF EXAM: 12/08/2019 COMPARISON: NONE CLINICAL HISTORY: abdominal pain. LLQ pain TECHNIQUE: Transvaginal (TV). Date of LMP: approximately 28 days ago. No beta detected from urine. EXAM MEASUREMENTS: Uterus: 9.3 x 4.5 x 6.9 cm Endometrial Stripe: 0.6 cm Right Ovary: 3.7 x 1.8 x 2.5 cm Left Ovary: 2.5 x 2.5 x 2.7 cm 1. Uterus: Anteverted wnl 2. Endometrium: measures 0.6 cm 3. Right Ovary: wnl 4. Left Ovary: wnl, supplementary transabdominal imaging of left ovary performed for better visualiz ation. Spectral, color and waveform doppler imaging shows good arterial and venous flow within the ovaries ; there is no evidence for ovarian torsion. 5. Bilateral Adnexa: wnl 6. Posterior cul-de-sac: small amount of free fluid IMPRESSION: 1. Nonspecific small amount of free fluid within the posterior cul-de-sac.
--- NOTE | 2019-12-08 09:15 | US ---
EXAMINATION TYPE: US kidneys/renal and bladder DATE OF EXAM: 12/08/2019 COMPARISON: NONE CLINICAL HISTORY: pain. EXAM MEASUREMENTS: Right Kidney: 10.5 x 4.1 x 4.8 cm Left Kidney: 10.9 x 6.3 x 6.3 cm Right Kidney: No hydronephrosis or masses seen Left Kidney: No hydronephrosis or masses seen Bladder: Limited by incomplete distention Bilateral Jets seen: No There is no evidence for hydronephrosis at this point in time. No nephrolithiasis is seen. No addy s are identified. The urinary bladder is anechoic. Bilateral ureteral jets are seen. IMPRESSION: No hydronephrosis or nephrolithiasis.
--- NOTE | 2019-12-08 09:17 | US ---
EXAMINATION TYPE: US abdomen APPY DATE OF EXAM: 12/08/2019 COMPARISON: NONE CLINICAL HISTORY: pain. APPENDIX AP Diameter (normal < 6mm): 6 mm Measured outer wall to outer wall. Appendix not seen with certainty. Questionable tubular structure in the right lower quadrant. Nonspec ific appearance. Does the appendix wall appear hypervascular: No Is an appendicolith present: possible echogenic structure Is there inflammatory changes or free fluid present: no Patient is complaining of LLQ pain this morning. She states the pain has been ongoing for days and mo ves around. WBC not elevated. Measurement taken from final picture using higher freqency probe for be tter visualization. IMPRESSION: Questionable tubular structure in the right lower quadrant. Findings nonspecific could p ossibly represent appendix with appendicolith. Correlate clinically.
[2019-12-08 09:32] VITALS: BP 122/65; PULSE 66
== END 2019-12-08 09:58 | disposition home or self-care (01) ==
LOC: EC 06:39
DX: R10.817 Generalized abdominal tenderness (principal); R30.0 Dysuria; Z91.040 Latex allergy status; F17.200 Nicotine dependence, unspecified, uncomplicated
CPT/HCPCS: 36415; 93005; 80053; 82150; 83690; 85025; 86140; 81001; 81025; 87808; 87491; 87591; 87070; 93975; 76705; 76830; 76770; 99284; 96374; 96361; J1885

== ENCOUNTER 2020-08-20 | Emergency (ER) | payer OTHER | END 2020-08-20 19:41 | disposition home or self-care (01) | CPT/HCPCS: 36415; 80053; 82150; 83690; 85025; 81001; 81025; 76705; 74177; 99284; 96374; 96375; 96361; J2270; J1200; J2765; J1885; Q9967 ==